=== PATIENT | female | born 2000 | race Caucasian/White ===

== ENCOUNTER → 2021-08-01 | Outpatient (CLI) | payer OTHER ==
[~2021-08-01] MED LIST: CEPHALEXIN500 MG PO; PHENERGAN 25 MG25 M1 PO; PRENATAL TABLE1 EAC1 PO; VALTREX1000 MG PO
== END ==
LOC: EXRD 11:30
DX: M54.9 Dorsalgia, unspecified (principal)
CPT/HCPCS: 76775

== ENCOUNTER 2021-12-07 07:51 | Inpatient (IN) | payer OTHER ==
[~2021-12-07] VITALS: Ht 154.9 cm; Wt 59.9 kg
[2021-12-07 08:22] LABS: HEMOGLOBIN 13.4 gm/dl (12.3-15.3); RED BLOOD COUNT 4.05 M/UL (4.00-5.10); WHITE BLOOD COUNT 7.9 K/UL (4.5-11.0)
[2021-12-07] MEDS ORDERED: COLACE100 MG PO (10:45)
[2021-12-07] MEDS ORDERED: HEMOCYTE324 MG PO (10:45)
[2021-12-07] MEDS ORDERED: PERCOCET 5/325 T1 EA PO (10:45)
[2021-12-07] MEDS ORDERED: IBUPROFEN800 MG PO (10:45)
[2021-12-08 05:52] LABS: HEMOGLOBIN 12.2 gm/dl (12.3-15.3)
== END 2021-12-09 15:55 | disposition home or self-care (01) | DRG 787 ==
LOC: GENOP 07:51 → OB 07:59
PROVIDERS: ADMIT Obstetrics & Gynecology
PROC: 10D00Z1 Extraction of Products of Conception, Low, Open Approach (ICD-10-PCS; principal; 2021-12-07 09:49)
DX: O99.344 Other mental disorders complicating childbirth (principal); O99.324 Drug use complicating childbirth; O98.52 Other viral diseases complicating childbirth; F41.9 Anxiety disorder, unspecified; F32.A Depression, unspecified; O34.211 Maternal care for low transverse scar from previous cesarean delivery; O99.334 Smoking (tobacco) complicating childbirth; F11.99 Opioid use, unspecified with unspecified opioid-induced disorder; B00.9 Herpesviral infection, unspecified; Z20.822 Contact with and (suspected) exposure to COVID-19; F17.200 Nicotine dependence, unspecified, uncomplicated; Z37.0 Single live birth; Z3A.39 39 weeks gestation of pregnancy; Z82.0 Family history of epilepsy and other diseases of the nervous system
CPT/HCPCS: 36415; 80307; 81001; 85014; 85018; 85025; C9113; J0690; J1170; J1200; J1885; J2370; J2405; J2590; J2795; J7120